=== PATIENT | female | born 1995 | race African-American/Black ===

== ENCOUNTER 2016-07-24 13:42 | Emergency (ER) ==
[2016-07-24 14:02] VITALS: BP 116/76
--- NOTE | 2016-07-24 14:39 | PROVIDER DOCUMENTATION ---
HPI-Abdominal Pain/GI Problem - General Chief Complaint: Abdominal Pain Stated Complaint: FLU LIKE SX Time Seen by Provider: 07/24/16 14:35 Source: patient Allergies/Adverse Reactions: Patient Allergies Allergy/AdvReac Type Severity Reaction Status Date / Time ondansetron HCl * Allergy SWELLING Verified 02/04/16 20:43 [From Zofran (as hydrochloride)] sulfamethoxazole AdvReac SWELLING Verified 02/04/16 20:43 [From Bactrim] trimethoprim [From Bactrim] AdvReac SWELLING Verified 02/04/16 20:43 Home Medications: Home Medication List Medication Instructions Recorded Confirmed Last Taken Type No Home Medications 10/29/15 02/04/16 Unknown History - History of Present Illness-ABD Nature of Presenting Problems: patient is a 21 y/o F that presents to the ER with RLQ and RUQ pain since last pm with n/v, fever/chills. Patient denies dysuria, hematuria, or back pain. Abdominal Pain Onset Location: reports: RUQ, RLQ Pain Radiation: reports: no radiation Quality of Pain: reports: aching, cramping Severity in ED: reports: moderate Onset/Duration: reports: abrupt, last night Timing: reports: still present, constant Activities at Onset: reports: none Exposure to sick contacts?: No Modifying Factors: improves with: nothing Associated Symptoms: reports: fever/chills, nausea, vomiting. denies: chest pain, constipation, diaphoresis, diarrhea, genitourinary problems, muscle aches , sinus congestion/drainage, shortness of breath Similar Symptoms Previously?: No Recently seen or treated by another doctor?: No Review of Systems - Adult - REVIEW OF SYSTEMS - ADULT Constitutional: reports: chills, fever Eyes: denies: double vision Ears, Nose, Mouth & Throat: denies: ear pain, sinus problem, throat pain, throat swelling Cardiovascular: denies: chest pain, palpitations, syncope Respiratory: denies: cough, shortness of breath, wheezing Gastrointestinal: reports: abdominal pain, nausea, vomiting. denies: constipation, diarrhea, rectal bleeding Genitourinary: denies: dysuria, frequency, hematuria, urgency Musculoskeletal: reports: no symptoms reported Integumentary: reports: no symptoms reported Neurological: reports: no symptoms reported Psychiatric: reports: no symptoms reported Endocrine: reports: no symptoms reported Hematologic/Lymphatic: reports: no symptoms reported Allergic/Immunologic: reports: no symptoms reported All Other Systems: Reviewed and Negative Past History - Adult - PAST MEDICAL HISTORY-ADULT Review of Records: reports: Old Records Reviewed, Nursing Assessment Review, Medications Reviewed - PRIOR SURGERIES/PROCEDURES Surgical/Procedure History: reports: - IMMUNIZATION STATUS Childhood Immunizations: See Nurse Assessment Flu Vaccine: See Nurse Assessment - FAMILY HISTORY Family History: reviewed, not pertinent - SOCIAL HISTORY Smoking: cigarettes, less than 1 pack/day Living Situation: family Physical Exam-General - PHYSICAL EXAM-ADULT Initial Vital Signs Reviewed: Yes - CONSTITUTIONAL General Appearance: alert, mild distress - EYES Eyes: PERRL/EOMI, pink conjunctivae - HEAD, EARS, NOSE, MOUTH & THROAT HENMT: normocephalic/atraumatic, moist mucous membranes, normal ENT inspection - NECK Neck: non-tender, full range of motion, normal inspection. negative: limited range of motion, lymphadenopathy - RESPIRATORY Respiratory: lungs clear, normal breath sounds, no respiratory distress, no accessory muscle use - CARDIOVASCULAR Cardiovascular: regular rate, rhythm, no edema, no murmur - GASTROINTESTINAL (ABDOMEN) Abdominal Exam: normal bowel sounds, soft, no organomegaly, no pulsatile mass, guarding, tenderness (RLQ). negative: rigid, hepatomegaly, spleenomegaly, McBurney's point tenderness, Senior's sign - MUSCULOSKELETAL Back Exam: no CVA tenderness, no vertebral tenderness Extremity: normal range of motion, normal inspection, no pedal edema, pelvis stable - SKIN Integumentary: normal color, warm/dry - NEUROLOGIC Neurologic: grossly normal, no motor/sensory deficits - PSYCHIATRIC Psych/Mental Status: normal mood/affect, normal thought content, normal thought process, oriented x 3 Progress - PLAN OF CARE/RESULTS Progress/Plan/Lab Results: Vital Signs Temp Pulse Resp BP Pulse Ox 07/24/16 14:02 98.1 F 65 18 116/76 98 ondansetron HCl * [From Zofran (as hydrochloride)] Allergy (Verified 02/04/16 20 :43) SWELLING sulfamethoxazole [From Bactrim] Adverse Reaction (Verified 02/04/16 20:43) SWELLING trimethoprim [From Bactrim] Adverse Reaction (Verified 02/04/16 20:43) SWELLING No Home Medications 10/29/15 Laboratory 07/24/16 07/24/16 07/24/16 14:25 14:20 14:20 WBC 11.37 H RBC 4.76 Hgb 14.5 Hct 42.5 MCV 89.3 MCH 30.5 MCHC 34.1 RDW Std Deviation 13.4 Plt Count 458 H MPV 10.0 Immature Gran % (Auto) 0.7 H Neut % (Auto) 82.4 H Lymph % (Auto) 11.7 L Irion % (Auto) 5.1 Eos % (Auto) 0.0 Baso % (Auto) 0.1 Immature Gran # (Auto) 0.08 H Neut # (Auto) 9.37 H Lymph # (Auto) 1.33 Irion # (Auto) 0.58 Eos # (Auto) 0.00 Baso # (Auto) 0.01 Sodium 143 Potassium 3.5 Chloride 100 Carbon Dioxide 25 Anion Gap 18 BUN 13 Creatinine 0.9 Estimated GFR/1.73 m2 > 60 BUN/Creatinine Ratio 14 Glucose 128 H Calculated Osmolality 287 Calcium 9.9 Total Bilirubin 0.82 AST 20 ALT 17 Alkaline Phosphatase 63 Total Protein 8.2 Albumin 4.9 Globulin 3.3 Albumin/Globulin Ratio 1.5 Amylase 180 Lipase 13 Urine Source Urine Color Urine Turbidity Urine pH Ur Specific Hollister Urine Protein Ur Glucose (Stick) Ur Ketones (Stick) Urine Blood Urine Nitrite Urine Bilirubin Urobilinogen Dipstick Urine Leukocytes Urine WBC (Auto) Urine RBC (Auto) U Epithel Cells (Auto) Urine Bacteria (Auto) Urine Test NEGATIVE 07/24/16 14:03 WBC RBC Hgb Hct MCV MCH MCHC RDW Std Deviation Plt Count MPV Immature Gran % (Auto) Neut % (Auto) Lymph % (Auto) Irion % (Auto) Eos % (Auto) Baso % (Auto) Immature Gran # (Auto) Neut # (Auto) Lymph # (Auto) Irion # (Auto) Eos # (Auto) Baso # (Auto) Sodium Potassium Chloride Carbon Dioxide Anion Gap BUN Creatinine Estimated GFR/1.73 m2 BUN/Creatinine Ratio Glucose Calculated Osmolality Calcium Total Bilirubin AST ALT Alkaline Phosphatase Total Protein Albumin Globulin Albumin/Globulin Ratio Amylase Lipase Urine Source CLEAN CATCH Urine Color YELLOW Urine Turbidity CLEAR Urine pH 7.0 Ur Specific Hollister 1.034 Urine Protein 200 A Ur Glucose (Stick) NEGATIVE Ur Ketones (Stick) 40 A Urine Blood NEGATIVE Urine Nitrite NEGATIVE Urine Bilirubin NEGATIVE Urobilinogen Dipstick 3 A Urine Leukocytes TRACE A Urine WBC (Auto) 10-20 A Urine RBC (Auto) <10 U Epithel Cells (Auto) >10 A Urine Bacteria (Auto) 1+ Urine Test Orders Category Date Time Status ED: Urine Bedside ORDERED Care 07/24/16 14:10 Inactive NPO Diet 07/24/16 14:10 Completed AMYLASE [CHEM] Stat Lab 07/24/16 14:20 Completed CBC WITH ELECTRONIC DIFF [HEME] Stat Lab 07/24/16 14:20 Completed COMPREHENSIVE METABOLIC PANEL [CHEM] Stat Lab 07/24/16 14:20 Completed Flu Swab [INFLUENZA SCREEN A/B] Stat Lab 07/24/16 14:03 Completed LIPASE [CHEM] Stat Lab 07/24/16 14:20 Completed TEST-URINE [PREG] Stat Lab 07/24/16 14:25 Completed URINALYSIS W/POSS RFLX CULT [URINALYSIS] Stat Lab 07/24/16 14:03 Completed URINE CULTURE [RM] Routine Lab 07/24/16 16:21 Results Departure - Departure Time of Disposition Order: 16:58 DIAGNOSIS: Abdominal pain Qualifiers: Abdominal location: generalized Qualified Code(s): R10.84 - Generalized abdominal pain Disposition: [place] [id number] Certified Medical Emergency: Emergent Condition: Stable Referrals: None,PCP [Primary Care Provider] - Attestation - Scribe Verification/Attestation Scribe:: Ozzy Ross Acting as Scribe for:: Naveen Chaves Scribe documention review:: This chart was documented by a scribe and accurately reflects the service the provider performed and the decisions made by the provider. - Physician/ OBDULIA Attestation Patient care was provided by Advanced Practice Provider:: Yes Advanced Practice Provider:: Naveen Chaves Advanced Practice Provider documentation review:: The Mid-level provider documentation, treatment plan and medical decision making was reviewed by the physician who agrees with all treatment and medical decision making by the MLP. Physician Attestation - Physician Attestation I, the provider, attest to the following statement:: Naveen Chaves Physician documentation Attestation:: This documentation recorded by the scribe accurately reflects the service I personally performed and the decisions made by me.
[2016-07-24 14:41] LABS: MANUAL DIFF NEEDED? NO
[2016-07-24 14:57] LABS: BASO% 0.1 % (0.0-0.8); HEMATOCRIT 42.5 % (37.0-47.0); HEMOGLOBIN 14.5 g/dL (12.0-16.0); IMM GRAN# 0.08 X1000 (0.0-0.04); IMM GRAN% 0.7 % (0.0-0.5); LYMPH# 1.33 X1000 (1.2-3.4); LYMPH% 11.7 % (20.5-51.1); MCH 30.5 PG (27-31); MCHC 34.1 g/dL (33-37); MCV 89.3 FL (81-99); MONO# 0.58 X1000 (0.11-0.59); MONO% 5.1 % (1.7-9.3); NEUT% 82.4 % (42.2-75.2); PLT 458 X1000 (130-400); RBC 4.76 XMIL (4.2-5.4)
[2016-07-24 15:13] LABS: AGAP 18; ALBUMIN 4.9 g/dL (3.5-5.0); ALKALINE PHOSPHATASE 63 U/L (32-104); AMYLASE 180 U/L (20-200); BUN 13 mg/dL (8-22); CALCIUM 9.9 mg/dL (8.8-10.2); CHLORIDE 100 mmol/L (98-107); COSMO 287; GOT 20 U/L (10-30); GPT 17 U/L (10-36); LIPASE 13 U/L (13-60); POTASSIUM 3.5 mmol/L (3.5-5.1); SODIUM 143 mmol/L (136-145); TCO2 25 mmol/L (25-35); TOTAL BILIRUBIN 0.82 mg/dL (0.20-1.00); TOTAL PROTEIN 8.2 g/dL (6.3-8.3)
[2016-07-24 15:47] LABS: URINE MICRO REVIEW NEEDED? NO; URINE SOURCE CLEAN CATCH
[2016-07-24 16:06] LABS: BILIRUBIN URINE NEGATIVE (NEGATIVE); BLOOD URINE NEGATIVE (NEGATIVE); COLOR YELLOW; GLUCOSE URINE NEGATIVE (NEGATIVE); LEUKOCYTES URINE TRACE (NEGATIVE); NITRITE URINE NEGATIVE (NEGATIVE); PROTEIN URINE 200 mg/dL (NEGATIVE); SP GRAVITY URINE 1.034; TURBIDITY URINE CLEAR (CLEAR); UR EPITHELIAL CELLS >10 /HPF (<10); URINE BACTERIA 1+ /HPF; URINE CULTURE NEEDED? YES; URINE RBC <10 /HPF (<10); UROBILINOGEN URINE 3 mg/dL (NORMAL)
== END 2016-07-24 16:58 | disposition left against medical advice (07) ==
LOC: ED 13:42
DX: R10.84 Generalized abdominal pain (principal); R10.11 Right upper quadrant pain; R10.31 Right lower quadrant pain; R50.9 Fever, unspecified; R11.2 Nausea with vomiting, unspecified; F17.210 Nicotine dependence, cigarettes, uncomplicated
CPT/HCPCS: 80053; 81001; 81025; 82150; 83690; 85025; 87088; 87804

== ENCOUNTER 2016-12-04 02:39 | Inpatient (IN) ==
[2016-12-04] MEDS ORDERED: VANCOMYCIN 1 GM/NS 1 GM/250 ML IVPB IV ONE (03:26)
[2016-12-04 03:45] LABS: MANUAL DIFF NEEDED? NO
[2016-12-04 03:47] LABS: BASO% 0.6 % (0.0-0.8); EOS# 0.02 X1000 (0.0-0.7); EOS% 0.2 % (0.0-10.0); HEMATOCRIT 42.8 % (37.0-47.0); HEMOGLOBIN 14.8 g/dL (12.0-16.0); IMM GRAN# 0.03 X1000 (0.0-0.04); IMM GRAN% 0.3 % (0.0-0.5); LYMPH# 2.55 X1000 (1.2-3.4); LYMPH% 21.8 % (20.5-51.1); MCH 31.3 PG (27-31); MCHC 34.6 g/dL (33-37); MCV 90.5 FL (81-99); MONO# 0.84 X1000 (0.11-0.59); MONO% 7.2 % (1.7-9.3); MPV 9.1 FL (7.4-10.4); NEUT% 69.9 % (42.2-75.2); PLT 420 X1000 (130-400); RBC 4.73 XMIL (4.2-5.4)
[2016-12-04 04:10] LABS: AGAP 16; ALBUMIN 4.8 g/dL (3.5-5.0); ALKALINE PHOSPHATASE 67 U/L (32-104); BUN 11 mg/dL (8-22); CALCIUM 9.5 mg/dL (8.8-10.2); CHLORIDE 98 mmol/L (98-107); COSMO 275; GOT 14 U/L (10-30); GPT 8 U/L (10-36); POTASSIUM 3.7 mmol/L (3.5-5.1); SODIUM 138 mmol/L (136-145); TCO2 24 mmol/L (25-35); TOTAL BILIRUBIN 0.61 mg/dL (0.20-1.00); TOTAL PROTEIN 8.2 g/dL (6.3-8.3)
[2016-12-04 06:35] LABS: URINE CULTURE NEEDED? NO; URINE MICRO REVIEW NEEDED? NO; URINE SOURCE CLEAN CATCH
[2016-12-04 06:42] LABS: BILIRUBIN URINE NEGATIVE (NEGATIVE); BLOOD URINE SMALL (NEGATIVE); COLOR YELLOW; GLUCOSE URINE NEGATIVE (NEGATIVE); LEUKOCYTES URINE NEGATIVE (NEGATIVE); NITRITE URINE NEGATIVE (NEGATIVE); PH URINE 5.5; PROTEIN URINE NEGATIVE (NEGATIVE); SP GRAVITY URINE 1.018; TURBIDITY URINE CLEAR (CLEAR); UR EPITHELIAL CELLS <10 /HPF (<10); URINE BACTERIA NEGATIVE /HPF; URINE RBC <10 /HPF (<10); URINE WBC <10 /HPF (<10); UROBILINOGEN URINE NORMAL (NORMAL)
[2016-12-04] MEDS ORDERED: NS 1,000 ML IV SCH (06:51)
[2016-12-04] MEDS ORDERED: TYLENOL PO PRN ×2 (06:51→07:25)
[2016-12-04] MEDS ORDERED: ZOFRAN IV PRN (06:51)
[2016-12-04] MEDS ORDERED: VANCOMYCIN IV PER PHARMACY MISC SCH (06:51)
[2016-12-04] MEDS ORDERED: BOOSTRIX VACCINE IM ONE (07:00)
[2016-12-04 07:04] LABS: UR AMPHETAMINES QUAL NONE DETECTED (NONE DETECT); UR BARBITUATES QUAL NONE DETECTED (NONE DETECT); UR BENZODIAZEPIN QUAL NONE DETECTED (NONE DETECT); UR CANNABINOIDS QUAL NONE DETECTED (NONE DETECT); UR COCAINE QUAL NONE DETECTED (NONE DETECT); UR METHADONE QUAL NONE DETECTED (NONE DETECT); UR OPIATES QUAL NONE DETECTED (NONE DETECT); UR OXYCODONE QUAL NONE DETECTED (NONE DETECT); UR PCP QUAL NONE DETECTED (NONE DETECT)
[2016-12-04] MEDS: PRILOSEC PO SCH (08:21)
[2016-12-04] MEDS: NICODERM PATCH TD SCH (08:21)
[2016-12-04] MEDS: LOVENOX SUBQ SCH ×3 (08:21→11:41)
[2016-12-04] MEDS: NORCO-5 PO PRN ×2 (08:28→16:49)
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
--- NOTE | 2016-12-04 10:58 | Diag Imaging Result Doc PS360 ---
EXTREM LOWER W/O CONTRAST - 12/04/2016 INDICATION: right knee swelling and pain TECHNIQUE: CT of the right knee COMPARISON: None FINDINGS: There is report of a laceration at the inferior right knee with some swelling. This area was marked with a metallic marker. This is at the anterior medial knee at the level of the tibial tuberosity. No soft tissue foreign body. No abnormal fluid or gas collections. The bones are intact and normally aligned. No bony erosions. Joint spaces are clear. There is some mild soft tissue swelling and thickening at the insertion of the patellar tendon distally.. 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 Correlate clinically. No evidence of acute injury. Electronically signed by Josh Oliver 12/04/2016 10:56 AM
--- NOTE | 2016-12-04 15:13 | Diag Imaging Result Doc PS360 ---
EXAM: US PELVIC NON-EMBROIDERY OPERATOR COMPLETE HISTORY: amenorrhea TECHNIQUE: Transabdominal COMMENT: The uterus is 7.2 x 5.7 x 3.7 cm with a 13 mm endometrial stripe. There is no free fluid. The ovaries are not enlarged. IMPRESSION: No significant abnormality. Electronically signed by Choco Grimaldo 12/04/2016 3:11 PM
[2016-12-04] MEDS: NS 1,000 ML IV SCH (15:27)
--- NOTE | 2016-12-04 16:33 | ECHO REPORT ---
ORDER DATE: 12/04/2016 ECHOCARDIOGRAPHIC MEASUREMENTS: 1. Interventricular septum 0.6. Left ventricular posterior wall 0.6. Diastolic diameter 4.3. Left atrium 2.7. Aorta 2.6. 2. Normal left ventricular cavity size. Estimated ejection fraction of 60-65%. Aortic valve leaflets are trileaflet. Mitral valve was normal. Tricuspid valve was normal. Pulmonic valve was normal. 3. There is no aortic stenosis or regurgitation. There is trivial mitral regurgitation. There is trace to mild tricuspid regurgitation. Peak velocity across the tricuspid valve was 2.5 m/sec. There is trivial pulmonary regurgitation. 4. There is no pericardial effusion or obvious intracardiac mass or thrombus seen. cc: MD Desiree Mcdaniels MD
[2016-12-04 16:37] LABS: FREE T4 1.93 ng/dL (0.93-1.70)
[2016-12-05] MEDS: NS 1,000 ML IV SCH (03:29)
[2016-12-05] MEDS ORDERED: VANCOMYCIN 1 GM/NS 1 GM/250 ML IVPB IV SCH (04:00)
[2016-12-05 06:25] LABS: MANUAL DIFF NEEDED? NO
[2016-12-05 06:29] LABS: BASO% 0.2 % (0.0-0.8); EOS% 1.2 % (0.0-10.0); HEMATOCRIT 39.1 % (37.0-47.0); HEMOGLOBIN 13.1 g/dL (12.0-16.0); IMM GRAN# 0.02 X1000 (0.0-0.04); IMM GRAN% 0.2 % (0.0-0.5); LYMPH# 3.54 X1000 (1.2-3.4); LYMPH% 43.9 % (20.5-51.1); MCHC 33.5 g/dL (33-37); MCV 92.4 FL (81-99); MONO# 0.88 X1000 (0.11-0.59); MONO% 10.9 % (1.7-9.3); MPV 9.2 FL (7.4-10.4); NEUT% 43.6 % (42.2-75.2); PLT 371 X1000 (130-400); RBC 4.23 XMIL (4.2-5.4)
[2016-12-05 06:50] LABS: AGAP 14; BUN 9 mg/dL (8-22); CALCIUM 8.9 mg/dL (8.8-10.2); CHLORIDE 102 mmol/L (98-107); COSMO 277; POTASSIUM 4.2 mmol/L (3.5-5.1); SODIUM 140 mmol/L (136-145); TCO2 24 mmol/L (25-35)
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
[2016-12-05] MEDS: NICODERM PATCH TD SCH (09:50)
[2016-12-05] MEDS: PRILOSEC PO SCH (09:50)
[2016-12-05] MEDS: LOVENOX SUBQ SCH (09:50)
[2016-12-05 11:19] VITALS: BP 109/65
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
--- NOTE | 2016-12-07 09:56 | DISCHARGE SUMMARY ---
ADMISSION DATE: 12/04/2016 DISCHARGE DATE: 12/05/2016 FINAL DISCHARGE DIAGNOSES: 1. Right knee infection. 2. Amenorrhea. 3. Leukocytosis. CONSULTATIONS REQUESTED DURING THIS HOSPITAL STAY: Orthopedic consultation with Dr. Rincon. IMAGING PERFORMED DURING THIS HOSPITAL STAY: Right lower extremity CT which revealed distal patellar tendinosis, as well as an effusion. HOSPITAL COURSE: Ms. Hernandez is a 21-year-old female who presented to the ER with severe pain involving the right knee. On exam the patient was noted to have an effusion. She was also noted to have a white blood cell count of 11,000. The patient was admitted to the hospitalist service. Blood cultures were obtained and the patient was started on broad-spectrum antibiotic therapy, as well as pain medication. The patient was seen by the orthopedic surgeon who recommended continuing the course of antibiotics and then, if the effusion did not resolve, that the patient follow up as outpatient for arthrocentesis. The patient's pain improved with antibiotic administration, and the patient was able to bear weight on the leg. The patient was cleared for discharge home on 12/05/2016. DISCHARGE MEDICATIONS: 1. Keflex 500 mg p.o. twice a day. 2. Lactobacillus 1 tab oral daily. DISCHARGE DIET: Regular diet. ACTIVITY: As tolerated. FOLLOWUP INSTRUCTIONS: The patient will need to follow up with Dr. Rincon in 2 weeks. The patient will also need to follow up with Dr. Sweet for further workup of her amenorrhea in the next 2-3 weeks. cc: Desiree Menjivar MD
== END 2016-12-05 17:06 | disposition home or self-care (01) ==
LOC: ED 02:39 → SUATTDRO 06:09 → 4N 06:09
PROVIDERS: ATTEND Internal Medicine